=== PATIENT | female | born 1985 | race Native Hawaiian/Other Pacific Islander ===

== ENCOUNTER 2023-05-30 23:58 | Inpatient (IN) | payer OTHER ==
[~2023-05-30] VITALS: Ht 172.7 cm; Wt 177.0 kg
[2023-05-31] VITALS (9 sets, daily range): BP systolic 104–142; BP diastolic 57–97; TEMP 97.5–99.1; Ht 172.7 cm; Wt 177.0 kg
[2023-05-31] MEDS ORDERED: METF500T PO (00:29)
[2023-05-31] MEDS ORDERED: CYCLOBENZAPRINE10 MG PO (00:29)
[2023-05-31] MEDS ORDERED: PROMETHAZINE HY25 MG PO (00:30)
[2023-05-31] MEDS ORDERED: BUSPIRONE15 MG PO (00:30)
[2023-05-31 01:34] LABS: PLATELET COUNT 370 K/uL (152-353)
[2023-05-31 02:16] LABS: POTASSIUM 4.3 mmol/L (3.6-5.2)
[2023-05-31 07:23] LABS: POTASSIUM 4.2 mmol/L (3.6-5.2)
[2023-05-31] MEDS ORDERED: ZIPRASIDONE HYD40 MG PO (10:34)
[2023-05-31] MEDS ORDERED: MINIPRESS2 MG PO (10:35)
[2023-05-31] MEDS ORDERED: CLON1TAB18 PO (10:36)
[2023-05-31] MEDS ORDERED: TRAZODONE HYDR150 MG PO (10:36)
[2023-05-31] MEDS ORDERED: ONDANSETRON ODT PO (10:38)
[2023-05-31] MEDS ORDERED: DICYCLOMINE HYD20 MG PO (10:38)
[2023-05-31] MEDS ORDERED: TYLENOL PO (10:39)
[2023-05-31 11:59] LABS: PLATELET COUNT 299 K/uL (152-353)
[2023-06-01] VITALS (7 sets, daily range): BP systolic 99–122; BP diastolic 53–78; TEMP 97.8–99.4
[2023-06-01 05:47] LABS: PLATELET COUNT 328 K/uL (152-353)
[2023-06-01 06:08] LABS: POTASSIUM 4.7 mmol/L (3.6-5.2)
[2023-06-02 04:00] VITALS: BP 118/70; TEMP 98.8
[2023-06-02 06:22] LABS: POTASSIUM 4.2 mmol/L (3.6-5.2)
[2023-06-02 06:35] LABS: PLATELET COUNT 321 K/uL (152-353)
[2023-06-02 08:30] VITALS: BP 132/88; TEMP 98.7
[2023-06-02 12:00] VITALS: BP 140/65; TEMP 98.4
[2023-06-02 16:00] VITALS: BP 116/91; TEMP 98.4
[2023-06-02 20:00] VITALS: BP 156/103; TEMP 98
[2023-06-02 23:57] VITALS: BP 135/85; TEMP 98.5
[2023-06-03 03:37] VITALS: BP 156/99; TEMP 98.3
[2023-06-03 06:01] LABS: PLATELET COUNT 229 K/uL (152-353)
[2023-06-03 06:10] LABS: POTASSIUM 3.9 mmol/L (3.6-5.2)
[2023-06-03 08:00] VITALS: BP 102/50; TEMP 99.5
[2023-06-03 12:00] VITALS: BP 135/88; TEMP 98.2
[2023-06-03 16:00] VITALS: BP 96/56; TEMP 98
== END 2023-06-03 18:45 | disposition home or self-care (01) | DRG 386 ==
LOC: ED 23:58 → MED/SURG 05-31 02:42
PROVIDERS: Internal Medicine Endocrinology, Diabetes & Metabolism; ADMIT Family Medicine; ATTEND Internal Medicine
DX: K50.90 Crohn's disease, unspecified, without complications (principal); Z68.43 Body mass index [BMI] 50.0-59.9, adult; E66.01 Morbid (severe) obesity due to excess calories; I10 Essential (primary) hypertension
CPT/HCPCS: 36415; 80048; 80053; 80307; 81000; 82150; 82272; 83605; 83690; 83735; 84100; 85027; 87015; 87045; 87324; 87328; 87329; 87449; 87493; 87899; 96361; 96365; 96367; 96372; 96374; 96375; 96376; 99284; J1170; J1650; J2175; J2405; J2543; J2920; J3475; J3490

== ENCOUNTER 2023-07-07 19:30 | Emergency (ER) | payer OTHER ==
[~2023-07-07] VITALS: Ht 172.7 cm; Wt 163.7 kg
[~2023-07-07 19:30] MED LIST: BUSPIRONE15 MG PO; CLON1TAB18 PO; CYCLOBENZAPRINE10 MG PO; DICYCLOMINE HYD20 MG PO; METF500T PO; MINIPRESS2 MG PO; ONDANSETRON ODT PO; PROMETHAZINE HY25 MG PO; TRAZODONE HYDR150 MG PO; TYLENOL PO; ZIPRASIDONE HYD40 MG PO
[2023-07-07 21:10] LABS: PLATELET COUNT 338 K/uL (152-353)
[2023-07-07 21:12] LABS: POTASSIUM 3.5 mmol/L (3.6-5.2)
[2023-07-07 23:00] VITALS: BP 133/80; TEMP 99.6
== END 2023-07-07 23:00 | disposition home or self-care (01) ==
LOC: ED 19:30
PROVIDERS: Family Medicine
DX: R10.9 Unspecified abdominal pain (principal); K50.90 Crohn's disease, unspecified, without complications; R11.2 Nausea with vomiting, unspecified
CPT/HCPCS: 80053; 81000; 82150; 83690; 85027; 96374; 96375; 96376; 99284; J2270; J2405; J2550